=== PATIENT | male | born 2000 | race Caucasian/White ===

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

== ENCOUNTER 2023-09-05 20:16 | Emergency (ER) | payer BC ==
[~2023-09-05] VITALS: Ht 188 cm; Wt 111.4 kg
[2023-09-05 20:21] VITALS: TEMP 97.5
[2023-09-05] MEDS ORDERED: Lido/EPI/Tetrac Gel 3 ML SYRINGE TOP ONE (20:30)
[2023-09-05] MEDS ORDERED: Acetaminophen 325 MG TAB PO ONE (20:30)
[2023-09-05 21:18] VITALS: BP 128/71; PULSE 80
== END 2023-09-05 21:18 | disposition home or self-care (01) ==
LOC: COL.ER 20:16
DX: S01.01XA Laceration without foreign body of scalp, initial encounter (principal); Z23 Encounter for immunization; W20.8XXA Other cause of strike by thrown, projected or falling object, initial encounter; Y93.89 Activity, other specified

== ENCOUNTER 2023-10-10 10:58 | Emergency (ER) | payer BC ==
[~2023-10-10] VITALS: Ht 188 cm; Wt 106.8 kg
[2023-10-10 11:03] VITALS: TEMP 97.7
[2023-10-10] MEDS ORDERED: Morphine 4 MG/ML VIAL IV ONE (11:45)
[2023-10-10] MEDS ORDERED: NS 1,000 ML IV ONE (11:45)
[2023-10-10 11:53] LABS: BASO % 0.2 % (0.0-2.0); EOS # 0.1 K/mm3 (0.0-0.7); EOS % 0.5 % (0.0-4.0); GRAN # 9.1 K/mm3 (1.4-6.5); GRAN % 83.6 % (42.2-75.2); HEMATOCRIT 46.2 % (42.0-52.0); HEMOGLOBIN 15.9 g/dl (13.5-18.0); LYMPH # 1.1 K/mm3 (1.2-3.4); LYMPH % 10.1 % (20.0-51.0); MEAN CELL VOLUME 85 fl (80.0-100.0); MEAN CORPUSCULAR HEMOGLOBIN 29 pg (27-31); MEAN CORPUSCULAR HGB CONC 34 g/dl (33.0-37.0); MEAN PLATELET VOLUME 10.2 fl (7.4-10.4); MONO # 0.6 K/mm3 (0.1-0.6); MONO % 5.4 % (1.7-9.3); PLATELET COUNT 253 K/mm3 (130-400); RED BLOOD COUNT 5.41 M/mm3 (4.20-5.60); REDCELL DISTRIBUTION WIDTH-CV 12.9 % (11.5-14.5)
[2023-10-10 12:04] LABS: ALBUMIN 4.4 g/dL (3.5-5.0); BILIRUBIN,TOTAL 0.7 mg/dL (0.2-1.2); C-REACTIVE PROTEIN 0.69 mg/dL (0.00-0.50); CALCIUM 9.7 mg/dL (8.4-10.2); CREATININE, serum 1.09 mg/dL (0.72-1.25); POTASSIUM 4.1 mEq/L (3.5-4.5); TOTAL PROTEIN 7.7 g/dl (6.2-8.1)
[2023-10-10 12:20] LABS: URINE APPEARANCE CLEAR (CLEAR/HAZY); URINE BLOOD NEGATIVE (NEGATIVE); URINE COLOR YELLOW (YELLOW); URINE GLUCOSE NEGATIVE (NEGATIVE); URINE KETONE NEGATIVE (NEGATIVE); URINE NITRATE NEGATIVE (NEGATIVE); URINE PROTEIN(semi-quant) NEGATIVE (NEGATIVE); URINE UROBILINOGEN 0.2 E.U/dL (0.2-1.0)
[2023-10-10] MEDS ORDERED: Iohexol 300 - 100 ML VIAL IV ONE (12:24)
[2023-10-10] MEDS ORDERED: NS 100 ML IV ONE (12:25)
[2023-10-10 12:27] LABS: COLLECTION METHOD CLEAN CATCH
[2023-10-10] MEDS ORDERED: NORCO 325 MG-51 TAB PO (13:53)
[2023-10-10] MEDS ORDERED: CIPRO 500MG TA500 MG PO (13:53)
[2023-10-10] MEDS ORDERED: FLAGYL500 MG PO (13:53)
[2023-10-10 14:05] VITALS: BP 110/78; PULSE 60
== END 2023-10-10 14:05 | disposition home or self-care (01) ==
LOC: COL.ER 10:58
PROVIDERS: Nurse Practitioner
DX: K52.9 Noninfective gastroenteritis and colitis, unspecified (principal)
CPT/HCPCS: J2270; J7030; Q9967

== ENCOUNTER 2023-10-11 12:52 | Observation (INO) | payer BC ==
[~2023-10-11] VITALS: Ht 188 cm; Wt 102.2 kg
[2023-10-11] VITALS (7 sets, daily range): BP systolic 118–125; BP diastolic 69–74; PULSE 67–76; TEMP 97.8–98.1
[~2023-10-11 12:52] MED LIST: CIPRO 500MG TA500 MG PO; FLAGYL500 MG PO; NORCO 325 MG-51 TAB PO
[2023-10-11] MEDS ORDERED: LR 1,000 ML IV ONE (13:15)
[2023-10-11] MEDS ORDERED: Ondansetron 4 MG/2 ML VIAL IV ONE (13:15)
[2023-10-11 13:30] LABS: BASO % 0.3 % (0.0-2.0); EOS # 0.1 K/mm3 (0.0-0.7); EOS % 1.4 % (0.0-4.0); GRAN # 5.1 K/mm3 (1.4-6.5); GRAN % 64.3 % (42.2-75.2); HEMATOCRIT 44.1 % (42.0-52.0); HEMOGLOBIN 15.3 g/dl (13.5-18.0); LYMPH % 25.2 % (20.0-51.0); MEAN CELL VOLUME 84 fl (80.0-100.0); MEAN CORPUSCULAR HEMOGLOBIN 29 pg (27-31); MEAN CORPUSCULAR HGB CONC 35 g/dl (33.0-37.0); MEAN PLATELET VOLUME 9.7 fl (7.4-10.4); MONO # 0.7 K/mm3 (0.1-0.6); MONO % 8.5 % (1.7-9.3); PLATELET COUNT 236 K/mm3 (130-400); RED BLOOD COUNT 5.23 M/mm3 (4.20-5.60); REDCELL DISTRIBUTION WIDTH-CV 12.8 % (11.5-14.5)
[2023-10-11] MEDS ORDERED: Morphine 4 MG/ML VIAL IV ONE (13:30)
[2023-10-11 13:44] LABS: COLLECTION METHOD CLEAN CATCH
[2023-10-11 13:48] LABS: BILIRUBIN,TOTAL 0.7 mg/dL (0.2-1.2); C-REACTIVE PROTEIN 5.47 mg/dL (0.00-0.50); CALCIUM 9.5 mg/dL (8.4-10.2); CREATININE, serum 1.06 mg/dL (0.72-1.25); POTASSIUM 3.8 mEq/L (3.5-4.5); TOTAL PROTEIN 7.3 g/dl (6.2-8.1)
[2023-10-11 13:53] LABS: URINE APPEARANCE CLEAR (CLEAR/HAZY); URINE BLOOD NEGATIVE (NEGATIVE); URINE COLOR YELLOW (YELLOW); URINE GLUCOSE NEGATIVE (NEGATIVE); URINE KETONE NEGATIVE (NEGATIVE); URINE NITRATE NEGATIVE (NEGATIVE); URINE PROTEIN(semi-quant) TRACE (NEGATIVE); URINE UROBILINOGEN 0.2 E.U/dL (0.2-1.0)
[2023-10-11] MEDS ORDERED: *Potassium Replacement Protocol MC SCH (15:00)
[2023-10-11] MEDS ORDERED: Ondansetron 4 MG/2 ML VIAL IV PRN (15:00)
[2023-10-11] MEDS ORDERED: NS 1,000 ML IV SCH (15:00)
[2023-10-11] MEDS ORDERED: Acetaminophen 325 MG TAB PO PRN (15:00)
--- NOTE | 2023-10-11 15:15 | NUR ---
PATIENT ARRIVED TO MEDICAL UNIT AT THIS TIME. PATIENT AND ORIENTED TO ROOM. UPDATED ON PLAN OF CARE. IVF INFUSING. PATIENT REPORTS 8/10 PAIN, REFUSES PRN MEDICATION AT THIS TIME. PATIENT STATES HIS LAST TIME THROWING UP WAS AT 1100 TODAY AFTER TAKING MEDICATION. PATIENT REPORTS THAT HE HAS BEEN FEELING THE NEED TO HAVE A BOWEL MOVEMENT, BUT EVERY TIME HE GOES IT IS JUST BLOODY. CALL LIGHT PLACED WITHIN REACH. WILL CONTINUE TO MONITOR.
[2023-10-11] MEDS ORDERED: Morphine 4 MG/ML VIAL IV PRN (16:00)
[2023-10-11] MEDS ORDERED: HYDROmorphone 0.5 MG/0.5 ML SYRINGE IV PRN (18:15)
[2023-10-11] MEDS ORDERED: Ketorolac 15 MG/ML VIAL IV ONE (18:15)
--- NOTE | 2023-10-11 20:30 | NUR ---
Initial shift assessment done, states the Dilaudid given earlier tonight was effective for pain control- states his abd pain is 4/10 at this time-will call when needs more pain meds,, Denies diarrhea/no stools, knows we need a stool sample if he goes, IV fluids of NS at 75cc/hr, NPO
[2023-10-12] VITALS (8 sets, daily range): BP systolic 119–138; BP diastolic 66–75; PULSE 78–84; TEMP 97.4–98.8
--- NOTE | 2023-10-12 05:54 | NUR ---
Has been resting well in between pain meds- rates abd pain 09/25,, getting Dilaudid IV as ordered, prn,, states is working well for pain control, no stools at all this shift, NPO, Up on own to bathroom, steady on feet, IV fluids of NS at 75cc/hr.
--- NOTE | 2023-10-12 08:00 | NUR ---
Patient laying in bed sleeping, easily awakened with verbal command. A&Ox4. VSS. IV CDI, fluids infusing. Denies pain and discomfort. NPO. Call light withn reach
[2023-10-12 08:12] LABS: BASO % 0.3 % (0.0-2.0); EOS # 0.1 K/mm3 (0.0-0.7); EOS % 1.6 % (0.0-4.0); GRAN # 3.9 K/mm3 (1.4-6.5); GRAN % 62.7 % (42.2-75.2); HEMOGLOBIN 13.9 g/dl (13.5-18.0); LYMPH # 1.7 K/mm3 (1.2-3.4); LYMPH % 26.8 % (20.0-51.0); MEAN CELL VOLUME 86 fl (80.0-100.0); MEAN CORPUSCULAR HEMOGLOBIN 29 pg (27-31); MEAN CORPUSCULAR HGB CONC 34 g/dl (33.0-37.0); MEAN PLATELET VOLUME 9.7 fl (7.4-10.4); MONO # 0.5 K/mm3 (0.1-0.6); MONO % 8.1 % (1.7-9.3); PLATELET COUNT 193 K/mm3 (130-400); RED BLOOD COUNT 4.77 M/mm3 (4.20-5.60); REDCELL DISTRIBUTION WIDTH-CV 12.8 % (11.5-14.5)
[2023-10-12 08:29] LABS: ALBUMIN 3.3 g/dL (3.5-5.0); CALCIUM 8.4 mg/dL (8.4-10.2); CREATININE, serum 1.08 mg/dL (0.72-1.25); MAGNESIUM 1.7 mg/dL (1.6-2.6); PHOSPHOROUS 3.2 mg/dL (2.3-4.7); POTASSIUM 4.1 mEq/L (3.5-4.5)
--- NOTE | 2023-10-12 11:46 | NUR ---
SW met with patient and to complete initial assessment for discharge planning. Patient resting in bed with washcloth over his eyes. at bedside and answered all questions. Patient and Abner ([phone]) live in [place], patient uses [facility] and uses not DME. Patient is covered by [facility] under his father's policy. Patient does not have a PCP and denies having a DPOA completed. SW provided PCP list for patient to establish with a physician. No other discharge needs identified. Discharge plan: Home
--- NOTE | 2023-10-12 12:07 | NUR ---
D: Cement Storage Worker stopped by room on rounds. A: Pt was resting and content with in the room. Pt and are new to the area. Pt has no needs right now. P: Cement Storage Worker informed pt that if he needed anything from the composite layup worker area to let his nurse know. Cement Storage Worker will follow up as needed.
[2023-10-12] MEDS ORDERED: metroNIDAZOLE 100 ML IV SCH (12:30)
[2023-10-12] MEDS ORDERED: Ketorolac 15 MG/ML VIAL IV ONE (13:15)
[2023-10-12] MEDS ORDERED: Ondansetron 4 MG/2 ML VIAL IV PRN (15:30)
[2023-10-12] MEDS ORDERED: Polyethylene Glycol 3350 119 GM BOTTLE PO SCH (18:00)
--- NOTE | 2023-10-12 20:30 | NUR ---
Initial shift assessment done- denies need for pain meds at this time,,his KUB results w/no obstruction-did call Don WHITLEY and let him know-- states we are good to start the bowel prep tonight-pt aware. IV fluids of NS at 75cc/hr.
[2023-10-13] VITALS (12 sets, daily range): BP systolic 106–130; BP diastolic 50–70; PULSE 64–90; TEMP 97.5–99.1
--- NOTE | 2023-10-13 05:09 | NUR ---
Pt has been resting well tonight-- Dilaudid given just twice this shift so far for the abd pain,, did finish the 1st part of Miralax prep around [place], has been NPO,, pt states no stools yet, but lots of gas-- will start the second Miralax part by 0600 this morning as per protocol-
[2023-10-13 06:49] LABS: BASO % 0.4 % (0.0-2.0); EOS # 0.1 K/mm3 (0.0-0.7); EOS % 1.5 % (0.0-4.0); GRAN # 3.2 K/mm3 (1.4-6.5); GRAN % 60.2 % (42.2-75.2); HEMATOCRIT 37.8 % (42.0-52.0); LYMPH # 1.5 K/mm3 (1.2-3.4); LYMPH % 27.8 % (20.0-51.0); MEAN CELL VOLUME 85 fl (80.0-100.0); MEAN CORPUSCULAR HEMOGLOBIN 29 pg (27-31); MEAN CORPUSCULAR HGB CONC 34 g/dl (33.0-37.0); MEAN PLATELET VOLUME 10.1 fl (7.4-10.4); MONO # 0.5 K/mm3 (0.1-0.6); MONO % 9.9 % (1.7-9.3); PLATELET COUNT 202 K/mm3 (130-400); RED BLOOD COUNT 4.43 M/mm3 (4.20-5.60); REDCELL DISTRIBUTION WIDTH-CV 12.5 % (11.5-14.5)
[2023-10-13] MEDS ORDERED: Polyethylene Glycol 3350 119 GM BOTTLE PO SCH (07:00)
[2023-10-13 07:34] LABS: ALBUMIN 3.2 g/dL (3.5-5.0); CALCIUM 8.6 mg/dL (8.4-10.2); CREATININE, serum 1.14 mg/dL (0.72-1.25); POTASSIUM 3.7 mEq/L (3.5-4.5)
--- NOTE | 2023-10-13 07:49 | NUR ---
Patient awake in bed, A&Ox4. VSS. IV CDI, fluids infusing. Patient finishing up 2nd part of bowel prep. Denies pain and discomfort. Call light within reach
[2023-10-13 07:57] LABS: MAGNESIUM 1.7 mg/dL (1.6-2.6); PHOSPHOROUS 3.1 mg/dL (2.3-4.7)
[2023-10-13] MEDS ORDERED: LR 1,000 ML IV SCH (10:15)
[2023-10-13] MEDS ORDERED: Lidocaine PF 2% (20 MG/ML) 5 ML VIAL ONE (10:23)
[2023-10-13] MEDS ORDERED: fentaNYL 50 MCG/ML 2 ML VIAL ONE (10:23)
--- NOTE | 2023-10-13 10:42 | NUR ---
Initial visit; Patient and his thanked Clinical Services Manager for looking in on him and offering God's blessings for healing. Clinical Services Manager will keep Mahendra in her prayers and will continue to check on him while he is a patient here.
--- NOTE | 2023-10-13 11:25 | NUR ---
Patient to room 317 from a procedure, with the patient. Alert, but drowsy. Ambulation with assistance to bed. VSS. IV CDI, fluids by gravity. Denies pain and discomfort. Nurse reoriented the patient to location, call light and room. Post OP VS monitored. Call light within reach
[2023-10-13] MEDS ORDERED: ZOFRAN ODT4 MG PO (14:21)
--- NOTE | 2023-10-13 15:29 | NUR ---
Discharge paperwork reviewed with the patient and . Patient verbalized an understanding to follow doctors orders. IV still infusing. Call light within reach
--- NOTE | 2023-10-13 15:50 | NUR ---
IV removed, tip intact. Gauze and coban applied. Patient taken by wheelchair to ER entrance. Personal belongings and discharge paperwork with the patient. No further needs expressed
== END 2023-10-13 15:50 | disposition home or self-care (01) ==
LOC: COL.ER 12:52 → MEDICAL 14:29
PROVIDERS: Family Medicine; ADMIT Internal Medicine
DX: K51.50 Left sided colitis without complications (principal); K92.1 Melena; R19.4 Change in bowel habit; R19.7 Diarrhea, unspecified; R93.3 Abnormal findings on diagnostic imaging of other parts of digestive tract; R10.9 Unspecified abdominal pain; Z83.79 Family history of other diseases of the digestive system; Z80.0 Family history of malignant neoplasm of digestive organs
CPT/HCPCS: G0378; J0744; J1170; J1836; J1885; J2270; J2405; J2704; J3010; J7030; J7120